=== PATIENT | male | born 2000 | race Caucasian/White ===

== ENCOUNTER 2019-01-14 17:31 | Emergency (ER) | payer OTHER ==
--- NOTE | 2019-01-14 18:21 | EDM.PDOC ---
ED HPI GENERAL MEDICAL PROBLEM - General Chief Complaint: Respiratory Problem Stated Complaint: STIFF NECK, MUSCLE TWITCHING AND SOB Time Seen by Provider: 01/14/19 17:44 Source of Information: Reports: Patient, RN Notes Reviewed - History of Present Illness INITIAL COMMENTS - FREE TEXT/NARRATIVE: 18 year old male got accidentally bit by his girlfriend's 1 year old black lab puppy 6 days ago under his chin. He was seen, placed on "bid amoxicillin" for 5 days. The wound has healed will, no swelling, drainage or pain at this time. Today he has had some R sided neck stiffness, mild dyspnea, discomfort with deep breathing and sensation of "electrical shocks r neck" Not aware of any more recent injury but does do manual labor putting up fencing. No cough, clarissa., fever or chills. Right Neck Pain Score (Numeric/FACES): 5 - Related Data Allergies Allergy/AdvReac Type Severity Reaction Status Date / Time Sulfa (Sulfonamide Allergy Rash Verified 01/14/19 17:40 Antibiotics) Home Meds: Home Meds . [No Known Home Meds] 01/14/19 [History] Past Medical History HEENT History: Reports: Impaired Vision Other HEENT History: wears eyeglasses. Genitourinary History: Reports: UTI, Recurrent Musculoskeletal History: Reports: Fracture Social & Family History - Tobacco Use Smoking Status *Q: Never Smoker Second Hand Smoke Exposure: No - Caffeine Use Caffeine Use: Reports: Coffee - Recreational Drug Use Recreational Drug Use: No ED ROS GENERAL - Review of Systems Review Of Systems: See Below Constitutional: Denies: Fever, Chills HEENT: Denies: Rhinitis, Sinus Problem, Throat Pain Respiratory: Reports: Shortness of Breath, Pleuritic Chest Pain. Denies: Cough Cardiovascular: Denies: Chest Pain (no chest pain at this time) GI/Abdominal: Reports: Nausea. Denies: Abdominal Pain, Vomiting Musculoskeletal: Reports: Neck Pain, Back Pain (R upper back, mild) Skin: Denies: Rash Neurological: Denies: Numbness, Tingling, Weakness ED EXAM, GENERAL - Physical Exam Exam: See Below General Appearance: Alert, No Apparent Distress Eye Exam: Bilateral Eye: PERRL Throat/Mouth: Normal Inspection Head: Other (area of bite inf. chin is not swollen, inflamed or tender). No: Facial Swelling Neck: Other Respiratory/Chest: No Respiratory Distress, Lungs Clear, Normal Breath Sounds Cardiovascular: Regular Rate, Rhythm GI/Abdominal: Soft Back Exam: Normal Inspection Extremities: Normal Inspection, Normal Range of Motion Neurological: Alert, Oriented, No Motor/Sensory Deficits Skin Exam: Warm, Dry, Normal Color, No Rash Course - Vital Signs Last Recorded V/S: Last Vital Signs Temp 99.2 F 01/14/19 17:35 Pulse 101 H 01/14/19 18:00 Resp 16 01/14/19 18:00 BP 121/82 01/14/19 18:00 Pulse Ox 98 01/14/19 18:00 - Re-Assessments/Exams Free Text/Narrative Re-Assessment/Exam: 01/14/19 18:54 I see no need to put patient back on abx at this time. Of note dog is reported to have been UTD with rabies vaccinations. Also this was an accidental play with the dog injury, not a provoked attack by a sick animal. Departure - Departure Time of Disposition: 18:19 Disposition: Home, Self-Care 01 Condition: Fair Clinical Impression: Strain of neck muscle - Discharge Information Instructions: Cervical Strain and Sprain Rehab-SportsMed Referrals: PCP,None [Primary Care Provider] - Forms: ED Department Discharge Additional Instructions: advil or ibuprofen 600 mg 3 times daily with food. Alternate ice and heat as needed to neck and upper back. Follow up clinic if not getting back to normal within 3 to 4 days as expectedl.
== END 2019-01-14 18:28 | disposition home or self-care (01) ==
LOC: JD.ED 17:31
DX: S16.1XXA Strain of muscle, fascia and tendon at neck level, initial encounter (principal); Z88.2 Allergy status to sulfonamides; X58.XXXA Exposure to other specified factors, initial encounter
CPT/HCPCS: 99282

== ENCOUNTER 2019-11-26 14:04 | Emergency (ER) | payer OTHER ==
--- NOTE | 2019-11-26 16:06 | EDM.PDOC ---
ED HPI GENERAL MEDICAL PROBLEM - General Chief Complaint: Genitourinary Problem Stated Complaint: GENITOURINARY PROBLEM Time Seen by Provider: 11/26/19 14:37 Source of Information: Reports: Patient, RN Notes Reviewed - History of Present Illness INITIAL COMMENTS - FREE TEXT/NARRATIVE: 19 yr old male with voiding urgency and mild dysuria. He has had this for a few days. [place] like sx became worse after pulling hard on a chain with work yesterday. No abd, groin or testicular pain, mass or swelling. No fever, chill, nausea or vomiting. No discharge. No worries for STD. Lower Abdomen Pain Score (Numeric/FACES): 5 - Related Data Allergies Allergy/AdvReac Type Severity Reaction Status Date / Time Sulfa (Sulfonamide Allergy Rash Verified 11/26/19 14:35 Antibiotics) Home Meds: Home Meds . [No Known Home Meds] 01/14/19 [History] Past Medical History HEENT History: Reports: Impaired Vision Other HEENT History: wears eyeglasses. Genitourinary History: Reports: UTI, Recurrent Musculoskeletal History: Reports: Fracture Social & Family History - Tobacco Use Smoking Status *Q: Never Smoker Second Hand Smoke Exposure: No - Caffeine Use Caffeine Use: Reports: None - Recreational Drug Use Recreational Drug Use: No ED ROS GENERAL - Review of Systems Review Of Systems: See Below Constitutional: Denies: Fever, Chills HEENT: Reports: No Symptoms Respiratory: Reports: No Symptoms Cardiovascular: Reports: No Symptoms GI/Abdominal: Denies: Abdominal Pain : Reports: Dysuria. Denies: Hematuria Musculoskeletal: Denies: Back Pain, Joint Pain Skin: Denies: Rash ED EXAM, RENAL/ - Physical Exam Exam: See Below General Appearance: Alert Head: Atraumatic Neck: Supple Respiratory/Chest: No Respiratory Distress, Lungs Clear Cardiovascular: Regular Rate, Rhythm GI/Abdominal: Soft, Non-Tender, No Mass. No: Hernia (Male) Exam: No Hernia, Normal Inspection. No: Rash, Scrotal Swelling, Test icular Mass Back Exam: No: CVA Tenderness (L), CVA Tenderness (R) Extremities: Normal Inspection, Normal Range of Motion Skin Exam: Warm, Dry, Normal Color Course - Vital Signs Last Recorded V/S: Last Vital Signs Temp 98.8 F 11/26/19 14:33 Pulse 92 11/26/19 14:33 Resp 16 11/26/19 14:33 BP 127/74 11/26/19 14:33 Pulse Ox 97 11/26/19 14:33 - Orders/Labs/Meds Labs: Laboratory Tests 11/26/19 Range/Units 16:13 Urine Color Yellow (Yellow) Urine Appearance Cloudy H (Clear) Urine pH 8.5 H (5.0-8.0) Ur Specific [place] 1.020 (1.005-1.030) Urine Protein Negative (Negative) Urine Glucose (UA) Negative (Negative) Urine Ketones Negative (Negative) Urine Occult Blood Negative (Negative) Urine Nitrite Negative (Negative) Urine Bilirubin Negative (Negative) Urine Urobilinogen 2.0 H (0.2-1.0) Ur Leukocyte Esterase Negative (Negative) Departure - Departure Time of Disposition: 16:50 Disposition: Home, Self-Care 01 Condition: Fair Clinical Impression: Dysuria Abdominal pain Qualifiers: Abdominal location: lower abdomen, unspecified Qualified Code(s): R10.30 - Lower abdominal pain, unspecified - Discharge Information Instructions: Dysuria Referrals: PCP,None [Primary Care Provider] - Forms: ED Department Discharge Additional Instructions: Drink plenty of water to maintain hydration. Avoid very heavy lifting for the next week as best you can. Follow up clinic as needed. Return to ED as needed if symptoms worsening in any way. Sepsis Event Note (ED) - Evaluation Sepsis Screening Result: No Definite Risk - Focused Exam Vital Signs: Vital Signs Temp Pulse Resp BP Pulse Ox 11/26/19 14:33 98.8 F 92 16 127/74 97
== END 2019-11-26 16:58 | disposition home or self-care (01) ==
LOC: JD.ED 14:04
DX: R30.0 Dysuria (principal); R10.30 Lower abdominal pain, unspecified; Z88.2 Allergy status to sulfonamides
CPT/HCPCS: 81003; 99282; 99284